=== PATIENT | female | born 1975 | race Two or more races ===

== ENCOUNTER → 2017-09-17 | Outpatient (CLI) | payer OTHER ==
[~2017-09-17] VITALS: Ht 121.9 cm; Wt 56.2 kg
[~2017-09-17] MED LIST: ANTIHISTAMINE EY5 ML OP; DECADRON P4 MG/ML-1M IH; DEPO PROVERA; FIORICET 50-301 EACH; FIORICET 50-301 EACH PO; FIORICET 50-321 EACH PO; FLONASE16 GM NS; GILTUSS TR TAB1 EACH PO; LEVSIN/SL0.125 MG PO; LEVSIN/SL0.125 MG SL; LIPITOR20 MG PO; OMEPRAZOLE20 M1; OMEPRAZOLE20 M1 PO; PROTONIX40 MG PO; SURFAK240 MG PO; TOBREX5 ML OP; TORADOL30 MG IM; TORADOL60 MG IM; URETRON DS1 TAB PO; VOLTAREM 50 MG PO; ZANTAC300 MG; ZANTAC300 MG PO; ZITHROMAX1 G/PKT PO; ZYRTEC10 MG PO
== END | disposition home or self-care (01) ==
LOC: PPHC 08:49
DX: B34.9 Viral infection, unspecified (principal); R51 Headache

== ENCOUNTER → 2017-09-17 | Outpatient (CLI) | payer OTHER | END | disposition home or self-care (01) | LOC: PPHC LAB 15:03 | DX: Z01.89 Encounter for other specified special examinations (principal) ==

== ENCOUNTER → 2017-09-21 | Outpatient (CLI) | payer OTHER ==
[~2017-09-21] VITALS: Ht 121.9 cm; Wt 55.3 kg
== END | disposition home or self-care (01) ==
LOC: PPHC 07:55
DX: R09.81 Nasal congestion (principal)

== ENCOUNTER → 2017-11-14 | Outpatient (CLI) | payer OTHER | END | disposition home or self-care (01) | LOC: PPHC 08:34 | DX: B34.9 Viral infection, unspecified (principal) ==

== ENCOUNTER → 2017-11-14 | Outpatient (CLI) | payer OTHER | END | disposition home or self-care (01) | LOC: PPHC LAB 10:09 | DX: Z01.89 Encounter for other specified special examinations (principal) ==

== ENCOUNTER 2017-11-29 07:55 | Emergency (ER) | payer OTHER ==
[~2017-11-29] VITALS: Ht 149.9 cm; Wt 55.3 kg
== END 2017-11-29 15:11 | disposition home or self-care (01) ==
LOC: ER 07:55
DX: R10.84 Generalized abdominal pain (principal)

== ENCOUNTER 2018-05-07 14:46 | Emergency (ER) | payer OTHER ==
[~2018-05-07] VITALS: Ht 149.9 cm; Wt 56.7 kg
== END 2018-05-07 20:34 | disposition home or self-care (01) ==
LOC: ER 14:46
DX: R53.81 Other malaise (principal)

== ENCOUNTER → 2018-05-08 09:13 | Outpatient (CLI) | payer OTHER | END | disposition home or self-care (01) | LOC: LAB 09:13 | DX: E03.8 Other specified hypothyroidism (principal); Z13.1 Encounter for screening for diabetes mellitus; N39.0 Urinary tract infection, site not specified ==

== ENCOUNTER 2018-05-13 14:17 | Outpatient (CLI) | payer OTHER | END 2018-05-13 14:31 | disposition home or self-care (01) | LOC: SONOGRAMA 14:17 | DX: E03.8 Other specified hypothyroidism (principal) ==

== ENCOUNTER → 2018-05-16 11:21 | Outpatient (CLI) | payer OTHER | END | disposition home or self-care (01) | LOC: LAB 11:21 | DX: E03.8 Other specified hypothyroidism (principal); R00.2 Palpitations ==

== ENCOUNTER → 2018-07-06 11:15 | Outpatient (CLI) | payer OTHER | END | disposition home or self-care (01) | LOC: LAB 11:15 | DX: E03.8 Other specified hypothyroidism (principal) ==

== ENCOUNTER 2018-10-04 07:49 | Outpatient (CLI) | payer OTHER | END 2018-10-04 18:44 | disposition home or self-care (01) | LOC: LAB 07:49 | DX: E21.3 Hyperparathyroidism, unspecified (principal); E23.1 Drug-induced hypopituitarism; E03.8 Other specified hypothyroidism ==

== ENCOUNTER 2018-11-27 15:54 | Outpatient (CLI) | payer OTHER | END 2018-11-27 17:25 | disposition home or self-care (01) | LOC: LAB 15:54 | DX: M35.01 Sjogren syndrome with keratoconjunctivitis (principal) ==

== ENCOUNTER 2021-05-02 08:00 | Outpatient (CLI) | payer OTHER | END 2021-05-02 08:30 | disposition home or self-care (01) | LOC: PPH VACUNA 08:00 | PROVIDERS: ATTEND Emergency Medicine Pediatric Emergency Medicine | DX: Z23 Encounter for immunization (principal) ==

== ENCOUNTER 2022-04-28 12:18 | Outpatient (CLI) | payer OTHER | END 2022-04-28 12:23 | disposition home or self-care (01) | LOC: SONOGRAMA 12:18 | PROVIDERS: ATTEND Internal Medicine Endocrinology, Diabetes & Metabolism | DX: E03.8 Other specified hypothyroidism (principal); E04.8 Other specified nontoxic goiter ==

== ENCOUNTER 2022-10-20 07:19 | Outpatient (CLI) | payer OTHER | END 2022-10-20 07:35 | disposition home or self-care (01) | LOC: SONOGRAMA 07:19 | PROVIDERS: ATTEND Internal Medicine Gastroenterology | DX: R10.84 Generalized abdominal pain (principal) ==

== ENCOUNTER 2022-12-06 07:13 | Outpatient (CLI) | payer OTHER | END 2022-12-06 07:15 | disposition home or self-care (01) | LOC: NUCLEAR 07:13 | PROVIDERS: ATTEND Internal Medicine Gastroenterology | DX: K81.1 Chronic cholecystitis (principal) ==

== ENCOUNTER 2024-09-29 08:43 | Inpatient (IN) | payer OTHER ==
[~2024-09-29] VITALS: Ht 149.9 cm; Wt 52.2 kg
[2024-09-29] MEDS ORDERED: LEVOTHYROXINE25 MCG PO (09:06)
[2024-09-29] MEDS ORDERED: KETOROLAC TROMETHAMINE 60 MG VIAL IM ONE ×2 (09:23→09:30)
[2024-09-29] MEDS ORDERED: MORPHINE SULFATE 2 MG/ML CARTRIDGE IV PRN (10:45)
[2024-09-29] MEDS ORDERED: 0.9 % SODIUM CHLORIDE 1,000 ML IV SCH (10:45)
[2024-09-29 11:02] LABS: HEMATOCRIT 35.8 % (36.0-45.00); MEAN CORPUSCULAR HEMOGLOBIN 33.2 pg (27.00-32.0); MEAN CORPUSCULAR HGB CONC 33.5 g/dl (32.0-36.0); PLATELET COUNT 266 K/uL (150-450); RED BLOOD COUNT 3.61 M/uL (4.00-6.00); RED CELL DISTRIBUTION WIDTH 13.4 % (11.5-14.5)
[2024-09-29 11:34] LABS: URINE APPEARANCE Clear; URINE BILIRRUBIN Negative (NEGATIVE); URINE BLOOD Small; URINE COLOR Yellow; URINE GLUCOSE Negative (NEGATIVE); URINE KETONE Negative (NEGATIVE); URINE LEUKOCYTE Large; URINE NITRATE Negative; URINE PROTEIN Negative (NEGATIVE); URINE UROBILINOGEN 0.2 E.U./dl
[2024-09-29 11:39] LABS: URINE BACTERIA 866.5 uL (0.0-1933); URINE RBC 9.2 uL (0.0-20.8); URINE WBC 80.2 uL (0.0-23.2)
[2024-09-29 11:47] LABS: INR 1.06; PROTHROMBIN TIME 11.5 SECONDS (9.0-11.5)
[2024-09-29 13:51] LABS: ALBUMIN 3.5 gm/dL (3.4-5.0); BILIRUBIN TOTAL 0.27 mg/dL (0.3-1.2); CREATININE SERUM 0.68 mg/dL (0.55-1.02); GFR 92.74; GLOBULINA 3.7 G/DL (2.4-3.5); POTASSIUM 3.82 mEq/L (3.5-5.1); TOTAL PROTEIN 7.2 gm/dL (6.4-8.2)
[2024-09-30 00:50] VITALS: BP 93/56; O2SAT 98
[2024-09-30] MEDS ORDERED: LEVOTHYROXINE SODIUM 25 MCG TABLET PO SCH (06:00)
[2024-09-30 08:00] VITALS: BP 97/63; O2SAT 98
[2024-09-30] MEDS ORDERED: BUPIVACAINE HCL/MPF 0.5% 30ML VIAL ONE (11:19)
[2024-09-30] MEDS ORDERED: CEFTRIAXONE SODIUM 2,000 MG VIAL ONE (11:19)
[2024-09-30] MEDS ORDERED: MEPERIDINE HCL/PF 50 MG/ML VIAL IM PRN (12:45)
[2024-09-30] MEDS ORDERED: TRAMADOL HCL 50 MG TABLET PO PRN (12:45)
[2024-09-30] MEDS ORDERED: SODIUM CHLORIDE 0.45 % 1,000 ML IV SCH (12:45)
[2024-09-30] MEDS ORDERED: PROMETHAZINE HCL 50 MG/ML AMPUL IM PRN (12:45)
[2024-09-30] MEDS ORDERED: ACETAMINOPHEN 325 MG TABLET PO SCH (13:00)
[2024-09-30 15:00] VITALS: BP 103/68; O2SAT 98
[2024-10-01 01:22] VITALS: BP 109/49; O2SAT 100
[2024-10-01 07:07] LABS: HEMATOCRIT 31.9 % (36.0-45.00); MEAN CELL VOLUME 100.5 fL (80.00-100.00); MEAN CORPUSCULAR HGB CONC 33.6 g/dl (32.0-36.0); PLATELET COUNT 232 K/uL (150-450); RED BLOOD COUNT 3.18 M/uL (4.00-6.00); RED CELL DISTRIBUTION WIDTH 13.2 % (11.5-14.5)
[2024-10-01 07:53] LABS: ALBUMIN 3.2 gm/dL (3.4-5.0); BILIRUBIN TOTAL 0.34 mg/dL (0.3-1.2); CALCIUM 8.4 mg/dL (8.5-10.1); CREATININE SERUM 0.61 mg/dL (0.55-1.02); GFR 105.13; GLOBULINA 3.1 G/DL (2.4-3.5); POTASSIUM 4.2 mEq/L (3.5-5.1); TOTAL PROTEIN 6.3 gm/dL (6.4-8.2)
[2024-10-01 08:00] VITALS: BP 81/54; O2SAT 95
[2024-10-01 08:18] LABS: HEMOGLOBIN 10.7 g/dL (12.0-15.00); MEAN CORPUSCULAR HEMOGLOBIN 33.6 pg (27.00-32.0)
[2024-10-01 12:00] VITALS: BP 83/55; O2SAT 100
== END 2024-10-01 14:52 | disposition home or self-care (01) | DRG 494 ==
LOC: ER 08:46 → SEC-K 11:03 → SURH 11:03
PROVIDERS: Orthopaedic Surgery; Preventive Medicine Public Health & General Preventive Medicine; ADMIT Internal Medicine; ATTEND Internal Medicine
PROC: 0QSL04Z Reposition Right Tarsal with Internal Fixation Device, Open Approach (ICD-10-PCS; 2024-09-30)
PROC: 0MQQ0ZZ Repair Right Ankle Bursa and Ligament, Open Approach (ICD-10-PCS; 2024-09-30)
PROC: 0SQF0ZZ Repair Right Ankle Joint, Open Approach (ICD-10-PCS; 2024-09-30)
PROC: 0QSJ04Z Reposition Right Fibula with Internal Fixation Device, Open Approach (ICD-10-PCS; principal; 2024-09-30 11:30)
DX: S82.841A Displaced bimalleolar fracture of right lower leg, initial encounter for closed fracture (principal); S92.191A Other fracture of right talus, initial encounter for closed fracture; S93.491A Sprain of other ligament of right ankle, initial encounter; W10.8XXA Fall (on) (from) other stairs and steps, initial encounter; E03.9 Hypothyroidism, unspecified; Y92.019 Unspecified place in single-family (private) house as the place of occurrence of the external cause

== ENCOUNTER 2024-10-10 08:19 | Outpatient (CLI) | payer OTHER ==
[~2024-10-10 08:19] MED LIST changes: +LEVOTHYROXINE25 MCG PO
== END 2024-10-10 08:29 | disposition home or self-care (01) ==
LOC: RAD 08:19
PROVIDERS: ATTEND Orthopaedic Surgery
DX: S82.841D Displaced bimalleolar fracture of right lower leg, subsequent encounter for closed fracture with routine healing (principal); X58.XXXD Exposure to other specified factors, subsequent encounter

== ENCOUNTER 2024-10-30 08:30 | Outpatient (CLI) | payer OTHER | END 2024-10-30 08:31 | disposition home or self-care (01) | LOC: RAD 08:30 | PROVIDERS: ATTEND Orthopaedic Surgery | DX: S82.841D Displaced bimalleolar fracture of right lower leg, subsequent encounter for closed fracture with routine healing (principal) ==

== ENCOUNTER 2024-11-17 07:38 | Outpatient (CLI) | payer OTHER | END 2024-11-17 07:46 | disposition home or self-care (01) | LOC: RAD 07:38 | PROVIDERS: ATTEND Orthopaedic Surgery | DX: S82.841D Displaced bimalleolar fracture of right lower leg, subsequent encounter for closed fracture with routine healing (principal) ==

== ENCOUNTER 2025-01-15 07:49 | Outpatient (CLI) | payer OTHER | END 2025-01-15 07:51 | disposition home or self-care (01) | LOC: RAD 07:49 | PROVIDERS: ATTEND Orthopaedic Surgery | DX: S82.841D Displaced bimalleolar fracture of right lower leg, subsequent encounter for closed fracture with routine healing (principal) ==

== ENCOUNTER 2025-02-19 09:34 | Outpatient (CLI) | payer OTHER | END 2025-02-19 09:35 | disposition home or self-care (01) | LOC: NUCLEAR 09:34 | PROVIDERS: ATTEND Orthopaedic Surgery | DX: M81.0 Age-related osteoporosis without current pathological fracture (principal) ==